=== PATIENT | male | born 1940 | race Caucasian/White ===

== ENCOUNTER 2019-01-07 21:37 | Inpatient (IN) | payer MEDICARE ==
[~2019-01-07] VITALS: Ht 182.9 cm; Wt 120.8 kg
[~2019-01-07 21:37] MED LIST: ACET500 PO; ALBU3IS INH; ALBU90OI6 INH; AMLO10 PO; AMLO5 PO; AMOCLA500 PO; ASCORBIC ACID PO; ASPI325 PO; ASPI81CH PO; ATORVASTATIN CA10 MG PO; BUDE6HFA; BUPRENORPHIN-N1 EACH SL; CARV3.125 PO; CHOL10002; CLOBET30L TOP; DIGO.25 PO; DIGOX125 MCG PO; DOCU100 PO; DOXY100 PO; ELIQUIS5 MG PO; FURO20 PO; GABA300 PO; HYDCHL12.5 PO; HYDR1TAB94 PO; INSULANPEN SC; LIDO5TO; LIDO700A20 TOP; LISI5 PO; MELO7.5 PO; METF500 PO; METO25ER PO; METO50 PO; MIRALAX17 GM PO; MULVITMINF PO; Metoprolol Tar100 MG PO; Milk Of Ma400 MG/5 M PO; NARCAN4 MG; NORT25 PO; POTCHL10ER PO; Prinivil10 MG PO; SANTYL30 GM TOP; SENN187 PO; SIMV10 PO; STIOLTO RESPIMAT4 GM INH; Senna Plus Tab1 EACH PO; TIOT18 INH; VITAMIN D250000 UNIT PO; Vitamin A10000 UNIT PO; ZINC220 PO; [UNRECOGNIZED DRUG - OTHER] TOP
[2019-01-07 22:22] LABS: Source, Urine Clean Catch
[2019-01-07 22:24] LABS: Appearance, Urine Clear (Clear); Bilirubin, Urine Neg (Neg); Blood, Urine 1+ (Neg); Color, Urine Yellow (P-Yellow); Glucose Qualitative, Urine Neg (Neg); Ketones, Urine Neg (Neg); Leukocyte Esterase, Urine Neg (Neg); Nitrite, Urine Neg (Neg); Protein, Urine Neg (Neg); Specific Gravity, Urine 1.005 (1.003-1.022); Urobilinogen, Urine NORM (Normal)
[2019-01-07 22:26] LABS: BASOPHILS ABSOLUTE AUTO 0.02 K/mm3 (0.00-0.23); BASOPHILS PERCENT AUTO 0 % (0-2); EOSINOPHILS ABSOLUTE AUTO 0.14 K/mm3 (0.00-0.68); EOSINOPHILS PERCENT AUTO 2 % (0-6); Hematocrit 39.3 % (37.0-53.0); Hemoglobin 11.5 g/dL (13.5-17.5); IMMATURE GRAN ABSOLUTE AUTO 0.02 K/mm3 (0.00-0.10); IMMATURE GRAN PERCENT AUTO 0 % (0-1); LYMPHOCYTES ABSOLUTE AUTO 0.43 K/mm3 (0.84-5.20); LYMPHOCYTES PERCENT AUTO 7 % (21-46); MONOCYTES ABSOLUTE AUTO 0.46 K/mm3 (0.16-1.47); MONOCYTES PERCENT AUTO 7 % (4-13); Mean Corpuscular HGB 27.2 pg (26.0-34.0); Mean Corpuscular HGB Conc 29.3 g/dL (31.5-36.5); Mean Corpuscular Volume 93 fL (80-100); Mean Platelet Volume 9.6 fL (9.1-12.4); NEUTROPHILS PERCENT AUTO 83 % (41-73); Platelet Count 165 K/mm3 (150-400); RDW Coefficient Variation 16.1 % (11.7-14.2); RDW Standard Deviation 54.8 fL (35.1-46.3); Red Blood Cell Count 4.23 M/mm3 (4.30-5.90); White Blood Cell Count 6.27 K/mm3 (4.00-11.30)
[2019-01-07 22:41] LABS: Bacteria Few /hpf; Squamous Epithelial Cells Not Seen /hpf (Few); White Blood Cells, Urine 0-2 /hpf (0-5)
[2019-01-07 22:42] LABS: PCO2 Arterial 69.4 mmHg (35-45); PO2 Arterial 59.5 mmHg (80-100); pH Blood Arterial 7.33 (7.35-7.45)
[2019-01-07 22:42] LABS: Alanine Aminotransfer (ALT/SGP 22 U/L (12-78); Albumin/Globulin Ratio 1.1 (0.8-1.8); Alk Phos 88 U/L (50-136); Anion Gap 3 mmol/L (6-16); Aspartate Aminotrans (AST/SGOT 19 U/L (12-37); Bilirubin, Total 0.7 mg/dL (0.1-1.0); Blood Urea Nitrogen 24 mg/dL (8-24); Bun/Creatinine Ratio 16.8 (12.0-20.0); CO2, Blood 36 mmol/L (21-32); Chloride, Blood 98 mmol/L (98-108); Creatinine, Blood 1.43 mg/dL (0.60-1.20); Globulin, Blood 3.8 g/dL (2.2-4.0); Glomerular Filtration Rate 51 (60-); Glucose, Blood 111 mg/dL (70-99); Potassium, Blood 4.6 mmol/L (3.5-5.5); Sodium, Blood 137 mmol/L (136-145); Total Protein, Blood 7.8 g/dL (6.4-8.2); Troponin I <0.015 ng/mL (0.000-0.040)
--- NOTE | 2019-01-08 01:00 | NUR ---
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 MENTATION WNL. SAFETY MEASURES REVIEWED. NO WEEPING OF LEGS NOTED . POOR HISTORIAN AND SEEMS UNSURE ABOUT SOME MEDS ON [facility] AND [facility] AGREES HE HAS RUN OUT OF MEDS OR [facility] MAY HAVE DCD. LIST SEEMS UPDATED AND AGREED UPON. AWARE NO MED FOR PAIN BUT TYLENOL.,. AF W/ AVERAGE 116 NOT SUSTAINING IN 120'S. FEW TIMES SEVERE LEG CRAMPS AND REQUIRES JUMPING OUT OF BED TO RELIEVE. NO BLE DSG COVERS DRY WOUNDS . 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
[2019-01-08 03:19] LABS: Adenovirus Not Detected (NOT DETECT); Bordetella pertussis Not Detected (NOT DETECT); Chlamydophila pneumoniae Not Detected (NOT DETECT); Coronavirus 229E Not Detected (NOT DETECT); Coronavirus HKU1 Not Detected (NOT DETECT); Coronavirus NL63 Not Detected (NOT DETECT); Coronavirus OC43 Not Detected (NOT DETECT); Human Metapneumovirus Detected (NOT DETECT); Human Rhinovirus/Enterovirus Detected (NOT DETECT); Influenza A Not Detected (NOT DETECT); Influenza A/2009-H1 Not Detected (NOT DETECT); Influenza A/H1 Not Detected (NOT DETECT); Influenza A/H3 Not Detected (NOT DETECT); Influenza B Not Detected (NOT DETECT); Mycoplasma pneumoniae Not Detected (NOT DETECT); Parainfluenza Virus 1 Not Detected (NOT DETECT); Parainfluenza Virus 2 Not Detected (NOT DETECT); Parainfluenza Virus 3 Not Detected (NOT DETECT); Parainfluenza Virus 4 Not Detected (NOT DETECT); Respiratory Syncytial Virus Not Detected (NOT DETECT)
[2019-01-08] MEDS ORDERED: AMLO5 PO (03:23)
[2019-01-08] MEDS ORDERED: MIRALAX17 GM PO (03:26)
[2019-01-08] MEDS ORDERED: ALBU90OI6 INH (03:28)
[2019-01-08] MEDS ORDERED: ELIQUIS5 MG PO (03:29)
[2019-01-08] MEDS ORDERED: Aspirin EC81 MG PO (03:30)
[2019-01-08] MEDS ORDERED: CARV25 PO (03:31)
[2019-01-08] MEDS ORDERED: FURO20 PO (03:32)
[2019-01-08] MEDS ORDERED: MAGOXI400 PO (03:33)
[2019-01-08] MEDS ORDERED: MELA3 PO (03:39)
[2019-01-08] MEDS ORDERED: OMEPRAZOLE20 MG PO (03:42)
[2019-01-08] MEDS ORDERED: POTCHL20ER PO (03:43)
[2019-01-08 04:08] LABS: Hematocrit 39.2 % (37.0-53.0); Hemoglobin 11.8 g/dL (13.5-17.5); Mean Corpuscular HGB Conc 30.1 g/dL (31.5-36.5); Mean Corpuscular Volume 90 fL (80-100); Mean Platelet Volume 9.9 fL (9.1-12.4); Platelet Count 137 K/mm3 (150-400); RDW Coefficient Variation 15.8 % (11.7-14.2); RDW Standard Deviation 51.7 fL (35.1-46.3); Red Blood Cell Count 4.37 M/mm3 (4.30-5.90); White Blood Cell Count 6.26 K/mm3 (4.00-11.30)
[2019-01-08 04:29] LABS: Albumin, Blood 3.9 g/dL (3.4-5.0); Bilirubin, Total 0.8 mg/dL (0.1-1.0); Bun/Creatinine Ratio 20.3 (12.0-20.0); Calcium, Blood 9.1 mg/dL (8.5-10.1); Creatinine, Blood 1.33 mg/dL (0.60-1.20); Globulin, Blood 3.9 g/dL (2.2-4.0); Total Protein, Blood 7.8 g/dL (6.4-8.2)
--- NOTE | 2019-01-08 06:00 | NUR ---
DOZING ON AND OFF AF HR AT SLEEP 100. REFUSED CPAP AND SIGNED WAVER. O2 AT 3 L WNL SAT
[2019-01-08 06:11] LABS: Digoxin (Lanoxin) 0.93 ug/mL (0.80-2.00)
--- NOTE | 2019-01-08 12:00 | NUR ---
PERMISSION FOR PATIENT CARE PATIENT GAVE STUDENT PERMISSION TO PROVIDE CARE ON 01/08/19.
--- NOTE | 2019-01-08 18:53 | NUR ---
PT HAD A GOOD DAY TODAY, HE HAS SLEPT OFF AND ON THROUGHOUT, HE STATES, "I AM SO TIRED, I HAVEN'T SLEPT WELL IN A COUPLE OF DAYS." ADDITIONALLY PATIENT HAS COMPLAINT OF TROUBLE WITH BM FOR SEVERAL DAYS, GAVE MED PER EMAR. PT O2 HOME DOSE IS 3.5 LPM VIA NC, HE HAS BEEN REQUIRING 3.5-4 LPM THROUGHOUT THE SHIFT, WHEN HE IS SLEEPING HE DOES DESATURATE. WILL CONTINUE TO MONITOR AND GIVE REPORT TO EDNA BENDER.
--- NOTE | 2019-01-08 21:50 | NUR ---
2150: REPORT GIVEN TO NURSE FOR ROOM 359 AND PT TRANSFERRED VIA WC. PM MEDS GIVEN, IV LEVAQUIN INFUSING, SPUTUM SAMPLE COLLECTED AND SENT TO LAB. PT GIVEN DULCOLAX SUPPOSITORY AND DENIES URGE TO HAVE BM AT TIME OF TRANSFER.
--- NOTE | 2019-01-08 22:08 | NUR ---
PT ARRIVES TO MEDICAL FLOOR FROM PCU VIA W/C. AMBULATES SBA TO BED. FRANKS CATH IS PATENT AND DRAINING CLEAR YELLOW URINE. ON 3L VIA NC. PT DENIES ANY PAIN OR DISCOMFORT. ORIENTED TO RM AND UNIT, CALL LIGHT IN REACH. ASSUMING CARE OF PT, WILL CONT TO MONITOR AND PROVIDE CARE.
--- NOTE | 2019-01-09 00:09 | NUR ---
ASSESSMENTS I AGREE WITH ALL PRIOR ASSESSMENTS BY YULIA MARINO.
[2019-01-09 05:49] LABS: Bun/Creatinine Ratio 26.9 (12.0-20.0); Calcium, Blood 8.8 mg/dL (8.5-10.1); Creatinine, Blood 1.34 mg/dL (0.60-1.20)
--- NOTE | 2019-01-09 05:53 | NUR ---
SHIFT SUMMARY: PT PCU TRANSFER TO MEDICAL FLOOR TONIGHT. PT IS A&O, WITH BASELINE LETHARGY. IS CALL LT APPROPRIATE AND AWARE OF PERSONAL LIMITATIONS. FRANKS IN PLACE FOR I/O, PATENT AND DRAINING. PT C/O CONSTIPATION AND RECIEVES SUPPOSITORY IN PCU. PT THIS AM HAS SMALL BM. CELLULITIS NOTED TO BLE, PT REPORTS PAIN WITH TOUCH. RED AND SCALEY. SPOKE WITH TIANA THIS AM TO UPDATE ON MIGUELITO'S CONDITION AND NEW ROOM ASSIGNMENT. WILL CONT TO MONITOR AND PROVIDE CARE UNTIL PRESUMED BY ONCOMING RN.
--- NOTE | 2019-01-09 10:25 | NUR ---
PT HAS A ADVANCED DIRECTIVE WITH DNR CODE STATUS, VERIFIED WITH PT. DR GARIBAY CHANGED TO DNR. VERIFIED WITH YULIA CASH AND DNR WRISTBAND PLACED TO LEFT WRIST.
--- NOTE | 2019-01-09 17:34 | NUR ---
SHIFT SUMMARY- PT A/OX2, PERSON AND PLACE, PT HAS BEEN SLEEPING ON AND OFF T/O MOST OF THE DAY. PT REFUSED TO GET OUT OF BED TO WALK OR UP TO THE CHAIR. PT MEDICATED X1 WITH TYLENOL. LS DIMINISHED WITH SLIGHT COARSENESS TO UPPER LOBES, ON 3L N/C WHICH PT IS HOME 02 DEPENDANT. 1+ BLE EDEMA. TINY PRICE'D, PT USING URINAL AT BEDSIDE. PT STARTED BACK ON IV LASIX BID. NO OTHER ACUTE CHANGES THIS SHIFT.
[2019-01-10 04:56] LABS: Bun/Creatinine Ratio 29.9 (12.0-20.0); Calcium, Blood 8.6 mg/dL (8.5-10.1); Creatinine, Blood 1.44 mg/dL (0.60-1.20); Potassium, Blood 4.3 mmol/L (3.5-5.5)
--- NOTE | 2019-01-10 06:05 | NUR ---
SHIFT SUMMARY ASSUMED CARE FROM TICO BENDER. PATIENT SLEEPING ON LEFT SIDE. GETS UP TO BSC WITH SBA. TICO ADMINISTERED A ENEMA AND REPORTED THAT PATIENT HAD A LARGE BM AFTER. PT USES CALL LIGHT APPROPRIATELY. VITAL SIGNS STABLE. NO NEW CHANGES.
--- NOTE | 2019-01-10 10:10 | NUR ---
PT REFUSING SHOWER PT CONTINUES TO REFUSE SHOWER. PT ENCOURAGED TO TAKE A SHOWER BY THIS RN. PT STATES HE DOESN'T UNDERSTAND WHY "EVERYONE" IS ASKING HIM TO TAKE A SHOWER. THIS RN EXPLAINED TO THE PT THAT HE IS BECOMING R[place] & THAT A SHOWER THIS SHIFT IS A VERY GOOD IDEA. PT AGREED TO TAKE ONE AROUND LUNCH TIME.
--- NOTE | 2019-01-10 15:49 | NUR ---
SHIFT SUMMARY PT USING O2 ONLY NEEDED. PT SHOWERED THIS SHIFT & AGREED TO BE UP IN CHAIR FOR MEALS. NO OTHER CHANGES IN ASSESSMENT AT THIS TIME. PT STATES HE FEELS "VERY TIRED." PT HAS SLEPT MOST THE SHIFT EXCEPT WHEN AWAKENED BY STAFF. VSS. WILL CONTINUE TO MONITOR UNTIL TURNOVER IS COMPLETE.
--- NOTE | 2019-01-11 02:04 | NUR ---
AMBULATION IN HALLS PT AMBULATING IN HALLS WITH RN AND IMMUNOPATHOLOGIST. AMBULATES FROM HIS RM (RM 359) TO ROOM 334 AND BACK. BECOMES SOB BUT OVERALL TOLERATES WELL. RETURNED TO BED, CALL LT IN PLACE. WILL CONT TO MONITOR.
[2019-01-11 05:35] LABS: Bun/Creatinine Ratio 33.8 (12.0-20.0); Calcium, Blood 8.8 mg/dL (8.5-10.1); Creatinine, Blood 1.3 mg/dL (0.60-1.20)
--- NOTE | 2019-01-11 05:37 | NUR ---
SHIFT SUMMARY - PT C/O PAIN TO BILATERAL FEET. PT ASKS THIS RN ABOUT GABAPENTIN HE TAKES AT HOME. [facility], PT TAKES 300MG PO GABAPENTIN DAILY, PT HAS NOT BEEN RECIEVING THIS HERE. WILL PASS OFF IN DAYSHIFT REPORT. TREATED c TYLENOL FOR PAIN TO FEET, WHICH PROVIDES LITTLE RELIEF. PT AMBULATES AROUND UNIT TONIGHT, MAKES IT TO RM 334 AND BACK. TOLERATES WELL ON 2-3L VIA NC. LS COARSE WHEEZE T/O. NO OTHER CHANGES TO REPORT. WILL CONT TO MONITOR AND PROVIDE CARE UNTIL PRESUMED BY ONCOMING RN.
[2019-01-11] MEDS ORDERED: ATOR10 PO (11:26)
[2019-01-11] MEDS ORDERED: Prinivil10 MG PO (11:27)
[2019-01-11] MEDS ORDERED: LEVO750 PO (11:31)
[2019-01-11] MEDS ORDERED: Nicoderm Cq1 EAC1 TOP (11:31)
[2019-01-11] MEDS ORDERED: PRED10 PO (11:33)
[2019-01-11] MEDS ORDERED: ALBU3IS INH (11:34)
[2019-01-11] MEDS ORDERED: DULERA 100 MCG/13 GM INH (11:35)
[2019-01-11] MEDS ORDERED: TORSE20 PO (11:36)
--- NOTE | 2019-01-11 12:10 | NUR ---
1130 ASSUMED CARE OF PATIENT, PATIENT DENIES PAIN OR SOB AT THIS TIME. PT SAYS STOMACH "FEELS FUNNY" PATIENT BELCHING AND EATING LUNCH AND STATES RELIEF
--- NOTE | 2019-01-11 12:16 | NUR ---
LATE ENTRY-TURNOVER REPORT GIVEN TO YULIA BURRELL AT 1100, WHO DENIES ANY FURTHER QUESTIONS. PT IN STABLE CONDITION & TO DC TODAY. NO CHANGES IN PT CONDITION.
--- NOTE | 2019-01-11 17:21 | NUR ---
discharge discharge instructions reviewed with patient and patients questions answered. patient aware that prescriptions have been faxed to [facility]. rim fire charger operator Neena Kelly and Hayden Posada RN nursing mails supervisor have phoned patients niece, with whom he lives, and left message that patient has been discharged and needs transportation home. no return call from patients niece and per patient he has no house cronin. will await return call from nialex
--- NOTE | 2019-01-11 17:49 | NUR ---
PT UNABLE TO DISCHARGE HOME UNABLE TO GET AHOLD OF TIANA MEDEIROS, MULTIPLE ATTEMPTS BY THIS RN AND NURSING SUP EDILMA. PT HAS NO KEYS TO GET INTO HOUSE. PT REQUESTED TO HAVE POLICE GO TO HOUSE AND CHECK- NO ONE HOME. SPOKE WITH DR LUNA- PT OK TO STAY UNTIL ABLE TO ACCESS HOUSE.
--- NOTE | 2019-01-11 17:57 | NUR ---
SUMMARY SPOKE WITH SHAILESH ARGUETA RN CHARGE NURSE REGARDING PATIENTS DISCHARGE PLAN. PER SHAILESH POLICE WENT TO PATIENTS HOUSE TO LOCATE FAMILY AND NO ONE WAS HOME. SHAILESH NOTIFIED DR GARIBAY AND WILL AWAIT FAMILY ARRIVAL TO DISCHARGE PATIENT. PATIENT HAS SLEPT THROUGHOUT THE AFTERNOON, DENIES PAIN OR DISCOMFORT. JIM ROGERS RN
--- NOTE | 2019-01-12 03:18 | NUR ---
SPOKE TO DR NESBITT REGARDING PATIENT HAVING NEAROPATHIC PAIN B/L LEs. RECVD DR MOREL TO GIVE HIS AM DOSE OF GABAPENTIN 300 MG PO AND PASS REQUEST FOR BETTER COVERAGE TO DAYTIME
--- NOTE | 2019-01-12 12:37 | NUR ---
DISCONTINUED UNCHARTED IV IV DISCONTINUED WNL. CATHETER INTACT. NO INFILTRATION. DISCONTINUED IV DUE TO PT'S DISCHARGE HOME.
--- NOTE | 2019-01-12 12:43 | NUR ---
DISCHARGE NOTE IV REMOVED PREVIOUS SHIFT. PT PROVIDED HARDCOPY AND VERBAL INSTRUCTIONS FOR DISCHARGE INCLUDING: DIAGNOSES, FOLLOW UP APPOINTMENTS, PRESCRIPTIONS. PERSONAL BELONGINGS GATHERED AND BAGGED. PT DRESSED IN PERSONAL CLOTHING. FAMILY CONTACTED TO RESERVOIR ENGINEERING CONSULTANT PT. AWAITING FAMILY ARRIVAL TO TRANSPORT PT HOME.
== END 2019-01-12 13:00 | disposition home or self-care (01) | DRG 291 ==
LOC: ER 21:37 → PCU 01-08 00:50 → MEDS 01-08 00:52 → PCU 01-08 00:52 → MEDS 01-08 21:54 → ENPENDDIS 01-11 09:52 → MEDS 01-12 13:00
PROVIDERS: Emergency Medicine; Internal Medicine; ADMIT Internal Medicine
PROC: 5A09457 Assistance with Respiratory Ventilation, 24-96 Consecutive Hours, Continuous Positive Airway Pressure (ICD-10-PCS; principal; 2019-01-08)
DX: I13.0 Hypertensive heart and chronic kidney disease with heart failure and stage 1 through stage 4 chronic kidney disease, or unspecified chronic kidney disease (principal); I50.33 Acute on chronic diastolic (congestive) heart failure; J12.3 Human metapneumovirus pneumonia; J44.1 Chronic obstructive pulmonary disease with (acute) exacerbation; J44.0 Chronic obstructive pulmonary disease with (acute) lower respiratory infection; N17.9 Acute kidney failure, unspecified; E87.2 Acidosis; J96.11 Chronic respiratory failure with hypoxia; N18.3 Chronic kidney disease, stage 3 (moderate); E11.22 Type 2 diabetes mellitus with diabetic chronic kidney disease; I48.91 Unspecified atrial fibrillation; F17.210 Nicotine dependence, cigarettes, uncomplicated; B97.89 Other viral agents as the cause of diseases classified elsewhere; Z66 Do not resuscitate; Z99.81 Dependence on supplemental oxygen; I73.9 Peripheral vascular disease, unspecified; E66.9 Obesity, unspecified; E11.621 Type 2 diabetes mellitus with foot ulcer; E11.42 Type 2 diabetes mellitus with diabetic polyneuropathy; J20.9 Acute bronchitis, unspecified
CPT/HCPCS: 36415; 36600; 51702; 71046; 80048; 80053; 80162; 81001; 82803; 82947; 83880; 84145; 84484; 85025; 85027; 87070; 87205; 87486; 87581; 87633; 87798; 93005; 93010; 93306; 94640; 94762; 96374-59; 97116; 97162; 99285-25; J1940; J1956; J2405; J2920; J2930; J7512

== ENCOUNTER 2019-03-12 08:01 | Inpatient (IN) | payer MEDICARE ==
[~2019-03-12] VITALS: Ht 185.4 cm; Wt 117.3 kg
[~2019-03-12 08:01] MED LIST changes: +ATOR10 PO; +Aspirin EC81 MG PO; +CARV25 PO; +DULERA 100 MCG/13 GM INH; +LEVO750 PO; +MAGNESIUM400 M1 PO; +MAGOXI400 PO; +MELA3 PO; +Nicoderm Cq1 EAC1 TOP; +OMEPRAZOLE20 MG PO; +POTCHL20ER PO; +PRED10 PO; +TORSE20 PO
[2019-03-12 08:33] LABS: BASOPHILS ABSOLUTE AUTO 0.02 K/mm3 (0.00-0.23); BASOPHILS PERCENT AUTO 0 % (0-2); EOSINOPHILS ABSOLUTE AUTO 0.12 K/mm3 (0.00-0.68); EOSINOPHILS PERCENT AUTO 2 % (0-6); Hematocrit 35.7 % (37.0-53.0); IMMATURE GRAN ABSOLUTE AUTO 0.04 K/mm3 (0.00-0.10); IMMATURE GRAN PERCENT AUTO 1 % (0-1); LYMPHOCYTES PERCENT AUTO 5 % (21-46); MONOCYTES ABSOLUTE AUTO 0.54 K/mm3 (0.16-1.47); MONOCYTES PERCENT AUTO 7 % (4-13); Mean Corpuscular HGB 29.1 pg (26.0-34.0); Mean Corpuscular HGB Conc 30.8 g/dL (31.5-36.5); Mean Corpuscular Volume 94 fL (80-100); Mean Platelet Volume 9.9 fL (9.1-12.4); NEUTROPHILS ABSOLUTE AUTO 6.35 K/mm3 (1.96-9.15); NEUTROPHILS PERCENT AUTO 85 % (41-73); Platelet Count 186 K/mm3 (150-400); RDW Coefficient Variation 17.2 % (11.7-14.2); RDW Standard Deviation 59.1 fL (35.1-46.3); Red Blood Cell Count 3.78 M/mm3 (4.30-5.90); White Blood Cell Count 7.47 K/mm3 (4.00-11.30)
[2019-03-12 08:52] LABS: Alanine Aminotransfer (ALT/SGP 11 U/L (12-78); Albumin, Blood 3.4 g/dL (3.4-5.0); Alk Phos 63 U/L (50-136); Anion Gap 3 mmol/L (6-16); Aspartate Aminotrans (AST/SGOT 6 U/L (12-37); Bilirubin, Total 0.6 mg/dL (0.1-1.0); Blood Urea Nitrogen 19 mg/dL (8-24); Bun/Creatinine Ratio 16.5 (12.0-20.0); CO2, Blood 32 mmol/L (21-32); Calcium, Blood 8.5 mg/dL (8.5-10.1); Chloride, Blood 107 mmol/L (98-108); Creatinine, Blood 1.15 mg/dL (0.60-1.20); Globulin, Blood 3.5 g/dL (2.2-4.0); Glomerular Filtration Rate >60 (60-); Glucose, Blood 138 mg/dL (70-99); Potassium, Blood 4.4 mmol/L (3.5-5.5); Sodium, Blood 142 mmol/L (136-145); Total Protein, Blood 6.9 g/dL (6.4-8.2); Troponin I 0.027 ng/mL (0.000-0.040)
[2019-03-12] MEDS ORDERED: ATOR40TA PO (15:11)
[2019-03-12] MEDS ORDERED: VITAMIN D50000 UNIT PO (15:46)
[2019-03-12] MEDS ORDERED: THERA1 EACH PO (15:53)
[2019-03-12] MEDS ORDERED: MELA3 PO (15:53)
--- NOTE | 2019-03-12 16:34 | NUR ---
RECEIVED REPORT AND ASSUMED CARE OF PATIENT UPON TRANSFER. PT IS ON 2 LPM VIA NC, O2 SAT >92%. PT STATES HE USES 2-3.5 LPM AT HOME NEEDED. LUNG SOUNDS ARE VERY WET AND COARSE WELL WHEEZY. WILL CONTINUE TO MONITOR AND FOLLOW ORDERS FOR THIS PATIENT. SET UP SUCTION FOR SAFETY.
--- NOTE | 2019-03-12 19:16 | NUR ---
PT HAS RESTED FOR AFTERNOON, ATE AND HAS BEEN ABLE TO EXPRESS NEEDS APPROPRIATELY. PT CONTINUES ON 2 LPM O2, HE HAS A BAD COUGH AND IS PRODUCING A LOT OF SPUTUM WHEN HE COUGHS, INSTRUCTED PATIENT ON USE OF SUCTION TO CLEAR SECRETIONS AND MUCUS. WILL CONTINUE MONITORING AND GIVE REPORT TO NOC RN.
--- NOTE | 2019-03-12 22:18 | NUR ---
PT'S VSS, SLIGHLY HTN, MEDS GIVEN ORDERED. PT ALERT AND TALKING WITH THIS NURSE. CALL LIGHT WITHIN REACH. REPORT GIVEN TO ONCOMING NURSE KATERINE ALFARO @[id number]
--- NOTE | 2019-03-13 06:20 | NUR ---
SHIFT SUMMARY PT SLEEPING IN ROOM COMFORTABLY AT THIS TIME. PT HAD NO ACUTE CHANGES IN STATUS T/O SHIFT. PT SLEPT WELL T/O NIGHT. DEVELOPED CONGESTED COUGH TOWARDS MORNING AND C/O THROAT PAIN. CEPACOL LOZENGES ORDERED AND GIVEN TO PT FOR PAIN. RESP EVEN UNLABORED ON 2L NS, W/ SATS >92%. DENIES PAIN. DENIES OTHER NEEDS. CALL LIGHT IN REACH.
[2019-03-13 08:21] LABS: BASOPHILS ABSOLUTE AUTO 0.01 K/mm3 (0.00-0.23); BASOPHILS PERCENT AUTO 0 % (0-2); EOSINOPHILS PERCENT AUTO 0 % (0-6); Hemoglobin 10.9 g/dL (13.5-17.5); IMMATURE GRAN ABSOLUTE AUTO 0.03 K/mm3 (0.00-0.10); IMMATURE GRAN PERCENT AUTO 0 % (0-1); LYMPHOCYTES ABSOLUTE AUTO 0.46 K/mm3 (0.84-5.20); LYMPHOCYTES PERCENT AUTO 6 % (21-46); MONOCYTES ABSOLUTE AUTO 0.46 K/mm3 (0.16-1.47); MONOCYTES PERCENT AUTO 6 % (4-13); Mean Corpuscular HGB 28.8 pg (26.0-34.0); Mean Corpuscular HGB Conc 31.1 g/dL (31.5-36.5); Mean Corpuscular Volume 92 fL (80-100); Mean Platelet Volume 10.2 fL (9.1-12.4); NEUTROPHILS ABSOLUTE AUTO 7.31 K/mm3 (1.96-9.15); NEUTROPHILS PERCENT AUTO 88 % (41-73); Platelet Count 186 K/mm3 (150-400); RDW Coefficient Variation 16.6 % (11.7-14.2); RDW Standard Deviation 56.3 fL (35.1-46.3); Red Blood Cell Count 3.79 M/mm3 (4.30-5.90); White Blood Cell Count 8.27 K/mm3 (4.00-11.30)
[2019-03-13 08:30] LABS: Anion Gap 4 mmol/L (6-16); Blood Urea Nitrogen 26 mg/dL (8-24); Bun/Creatinine Ratio 22.2 (12.0-20.0); CO2, Blood 35 mmol/L (21-32); Calcium, Blood 8.8 mg/dL (8.5-10.1); Chloride, Blood 103 mmol/L (98-108); Creatinine, Blood 1.17 mg/dL (0.60-1.20); Glomerular Filtration Rate >60 (60-); Glucose, Blood 150 mg/dL (70-99); Potassium, Blood 4.3 mmol/L (3.5-5.5); Sodium, Blood 142 mmol/L (136-145)
--- NOTE | 2019-03-13 08:57 | NUR ---
AM NOTE. ASSUMED CARE OF PT APROX 0700, PT IS A&Ox4 AND SBA IN THE ROOM, PT IS IND TO THE SIDE OF THE BED TO USE THE URINAL. PT WAS ADMITTED FOR CHF. PT IS CURRENTLY IN AFIB IN THE 100'S PER TYPESETTER PERFORATOR OPERATOR. PT'S L/S COARSE WITH EXP WHEEZES T/O, PT IS ON 2 L NC WITH O2 SATS >90%, THIS IS THE PT'S HOME DOSE. PT HAS 2+ PITTING EDEMA TO HIS BLE AND GENERALIZED EDEMA. BT PRESENT AND NORMOACTIVE, ABD IS SOFT AND NONTENDER TO PALP. PT HAS STATED WEAKNESS AND HAS SAID HE IS UNABLE TO TAKE CARE OF HIMSELF AT HOME ANY MORE, THIS STATEMENT MADE THE PT VISABLY UPSET. CALL LIGHT IN REACH, BED IS LOCKED AND LOW WILL CONTINUE TO MONITOR.
--- NOTE | 2019-03-13 16:01 | NUR ---
Initial Visit: Palliative Care Consult for Cardiac, Symptom Management, AD/POLST. Pt is A&O and denies pain at this time. Pt reports moderate dyspnea and mild anxiety. Engaged in therapeutic discussion regarding goals of care. Pt reports living with his niece and niece's and does not practice any latter day. Pt reports using kitchen and furniture to help stabalize as he ambulates. He reports needing assistance with ambulating, bathing, and at times with dressing. Pt also reports being forgetful of taking his medications. Educated Pt on disease process including trajectory. Educated on the importance of compliying with MD recommendations and the importance of routine conversations with PCP in order to plan accordingly. Pt expresses his primary goal at this point is receiving in home caregivers and can not affort to hire them. Instructed Pt this RN will place social service referral. At this time of visit Pt is being transfered to medical floor. Plan: Placed social service referral and palliative care will F/U for therapeutic visits and discuss AD/POLST.
--- NOTE | 2019-03-13 16:05 | NUR ---
PT. ARRIVED TO FLOOR FROM PCU-02 VIA . PT A&O BUT APPEARS DEPRESSED WITH A FLAT AFFECT. STEADY ON FEET, ABD OBESES, BLE ENDEMATOUS. DENIES PAIN OR NAUSEA . FACE RED AND PUFFY. LS COARSE T/O
--- NOTE | 2019-03-13 19:15 | NUR ---
PT. LAYING IN BED AFTER EATING DINNER, OXYGEN AT 2L/NC. PT. DENIES PAIN OR NAUSEA JUST WANTS TO BE ABLE TO BREATHE BETTER. NO NOTEABLE CHANGES.
--- NOTE | 2019-03-14 04:00 | NUR ---
SHIFT SUMMARY- PT. RESTED ON/OFF T/O THE NIGHT, NO APPARENT DISTRESS NOTED. ON . SCHEDULED MEDS GIVEN PER EMAR. PT. C/O TROUBLE SLEEPING AND COUGHING. ADMINISTERED MELATONIN AND LOZANGES PER ORDER, TOLERATED WELL. PT. USING SUCTION PRN FOR MILD SECRETIONS. CALL LIGHT WITHIN REACH AND SIDE RAILS UP X2. WILL CONT TO MONITOR.
[2019-03-14 05:06] LABS: BASOPHILS ABSOLUTE AUTO 0.02 K/mm3 (0.00-0.23); BASOPHILS PERCENT AUTO 0 % (0-2); EOSINOPHILS ABSOLUTE AUTO 0.07 K/mm3 (0.00-0.68); EOSINOPHILS PERCENT AUTO 1 % (0-6); Hematocrit 36.4 % (37.0-53.0); Hemoglobin 11.2 g/dL (13.5-17.5); IMMATURE GRAN ABSOLUTE AUTO 0.03 K/mm3 (0.00-0.10); IMMATURE GRAN PERCENT AUTO 0 % (0-1); LYMPHOCYTES ABSOLUTE AUTO 0.86 K/mm3 (0.84-5.20); LYMPHOCYTES PERCENT AUTO 8 % (21-46); MONOCYTES ABSOLUTE AUTO 0.74 K/mm3 (0.16-1.47); MONOCYTES PERCENT AUTO 7 % (4-13); Mean Corpuscular HGB Conc 30.8 g/dL (31.5-36.5); Mean Corpuscular Volume 91 fL (80-100); Mean Platelet Volume 10.1 fL (9.1-12.4); NEUTROPHILS ABSOLUTE AUTO 8.76 K/mm3 (1.96-9.15); NEUTROPHILS PERCENT AUTO 84 % (41-73); Platelet Count 215 K/mm3 (150-400); RDW Coefficient Variation 16.9 % (11.7-14.2); RDW Standard Deviation 56.6 fL (35.1-46.3); White Blood Cell Count 10.48 K/mm3 (4.00-11.30)
[2019-03-14 06:03] LABS: Alanine Aminotransfer (ALT/SGP 16 U/L (12-78); Albumin, Blood 3.2 g/dL (3.4-5.0); Albumin/Globulin Ratio 0.9 (0.8-1.8); Alk Phos 61 U/L (50-136); Anion Gap 6 mmol/L (6-16); Aspartate Aminotrans (AST/SGOT 6 U/L (12-37); Bilirubin, Total 0.4 mg/dL (0.1-1.0); Blood Urea Nitrogen 29 mg/dL (8-24); Bun/Creatinine Ratio 23.8 (12.0-20.0); CO2, Blood 36 mmol/L (21-32); Calcium, Blood 8.8 mg/dL (8.5-10.1); Chloride, Blood 100 mmol/L (98-108); Creatinine, Blood 1.22 mg/dL (0.60-1.20); Globulin, Blood 3.5 g/dL (2.2-4.0); Glomerular Filtration Rate >60 (60-); Glucose, Blood 137 mg/dL (70-99); Potassium, Blood 3.7 mmol/L (3.5-5.5); Sodium, Blood 142 mmol/L (136-145); Total Protein, Blood 6.7 g/dL (6.4-8.2)
--- NOTE | 2019-03-14 19:15 | NUR ---
PT, HAS SLEPT MOST OF THE DAY. HAS DENIED PAIN OR NAUSEA. PT. USING YANKER TO SUCTION SPUTUM WHEN COUGHING IT UP. BLOOD SUGARS HAVE BEEN LESS THAN 200 AND HAVE NOT NEEDED COVERED. NO OTHER CHANGES THIS SHIFT.
[2019-03-15 04:47] LABS: BASOPHILS ABSOLUTE AUTO 0.02 K/mm3 (0.00-0.23); BASOPHILS PERCENT AUTO 0 % (0-2); EOSINOPHILS ABSOLUTE AUTO 0.11 K/mm3 (0.00-0.68); EOSINOPHILS PERCENT AUTO 2 % (0-6); Hematocrit 38.9 % (37.0-53.0); Hemoglobin 11.7 g/dL (13.5-17.5); IMMATURE GRAN ABSOLUTE AUTO 0.02 K/mm3 (0.00-0.10); IMMATURE GRAN PERCENT AUTO 0 % (0-1); LYMPHOCYTES ABSOLUTE AUTO 0.83 K/mm3 (0.84-5.20); LYMPHOCYTES PERCENT AUTO 12 % (21-46); MONOCYTES ABSOLUTE AUTO 0.59 K/mm3 (0.16-1.47); MONOCYTES PERCENT AUTO 8 % (4-13); Mean Corpuscular HGB 27.9 pg (26.0-34.0); Mean Corpuscular HGB Conc 30.1 g/dL (31.5-36.5); Mean Corpuscular Volume 93 fL (80-100); Mean Platelet Volume 9.8 fL (9.1-12.4); NEUTROPHILS ABSOLUTE AUTO 5.63 K/mm3 (1.96-9.15); NEUTROPHILS PERCENT AUTO 78 % (41-73); Platelet Count 208 K/mm3 (150-400); RDW Coefficient Variation 16.6 % (11.7-14.2); RDW Standard Deviation 56.5 fL (35.1-46.3); Red Blood Cell Count 4.19 M/mm3 (4.30-5.90)
[2019-03-15 05:11] LABS: Bun/Creatinine Ratio 23.8 (12.0-20.0); Calcium, Blood 8.9 mg/dL (8.5-10.1); Creatinine, Blood 1.3 mg/dL (0.60-1.20); Magnesium, Blood 2.1 mg/dL (1.6-2.4); Potassium, Blood 3.6 mmol/L (3.5-5.5)
--- NOTE | 2019-03-15 07:50 | NUR ---
NOC SHIFT SUMMARY PT PLEASANT AND COOPERATIVE WITH CARE. HAS SLEPT MOST OF NIGHT. VSS. NO COUGHING OR SPUTUM PRODUCTION NOTED. APPEARED TO SLEEP WELL. NO ACUTE CHANGES NOTED THIS SHIFT. REPORT TO ONCOMING RN.
--- NOTE | 2019-03-15 17:23 | NUR ---
SHIFT SUMMARY PATIENT IS VERY PLEASANT. NO ACUTE CONCERNS AT THIS TIME. TAKES ALL HIS MEDICATIONS WHOLE WITH WATER. HE CALLS APPROPRIATELY. HE IS ALERT AND ORIENTED X 4, MOVES WITH STANDBY ASSIST. HE DID A LOT OF RELAXING AND RESTING TODAY. NO COMPLAINTS OF PAIN OR NUMBNESS AT THIS TIME.
--- NOTE | 2019-03-16 06:33 | NUR ---
SHIFT SUMMARY PT CONTINUES TO FEEL ILL. PT FEELS IF BREATHING HAS IMPROVED BUT IMPROVEMENT IS SLOW. PT SOB W/ EXERTION. FREQUENT NON PRODUCTIVE COUGH. LUNG SOUNDS COARSE. PT USING FLUTTER VALVE THROUGHOUT THE NIGHT. SLEPT OFF AN ON WHEN NOT WAKING UP TO COUGH. CEPACOL DROP GIVEN X 1. PT REMAINS ON 2 L O2 NC. O2 SATS IN THE LOW 90'S. NO ACUTE CHANGES THIS SHIFT. VSS. WILL CONTINUE TO MONITOR.
--- NOTE | 2019-03-16 18:30 | NUR ---
SHIFT SUMMARY PATIENT HAS BEEN PLEASANT. STATES THAT HE IS BACK TO HIS BASELINE WITH MOVEMENT AT THIS ITME. HE FEELS THAT HE IS ALMOST READY TO GO BACK. ALTHOUGH HE HAS A NONPRODUCTIVE COUGH. NO ACUTE CONCERNS FROM THE PATIENT TODAY.
[2019-03-17 05:01] LABS: Anion Gap 2 mmol/L (6-16); Blood Urea Nitrogen 36 mg/dL (8-24); Bun/Creatinine Ratio 30.3 (12.0-20.0); CO2, Blood 40 mmol/L (21-32); Calcium, Blood 9.1 mg/dL (8.5-10.1); Chloride, Blood 99 mmol/L (98-108); Creatinine, Blood 1.19 mg/dL (0.60-1.20); Glomerular Filtration Rate >60 (60-); Glucose, Blood 138 mg/dL (70-99); Magnesium, Blood 2.8 mg/dL (1.6-2.4); Potassium, Blood 4.2 mmol/L (3.5-5.5); Sodium, Blood 141 mmol/L (136-145)
--- NOTE | 2019-03-17 05:25 | NUR ---
SHIFT SUMMARY PT APPEARS TO BE BREATHING BETTER THIS EVENING AND PT REPORTS THAT OVERALL HE FEELS MUCH BETTER AND FEELS LIKE HE IS BREATHING BETTER. CONTINUES TO HAVE A NONPRODUCTIVE COUGH. LUNG SOUNDS CONTINUE TO BE TIGHT AND WHEEZY BUT LESS SO THAN PREVIOUS SHIFT. PT REPORTS THAT HE HAS NOT HAD A BM SINCE 03/11/19. SCHEDULED COLACE GIVEN AND PRN MILK OF MAG GIVEN WITH NO RESULTS. PT DENIES ANY ABD DISCOMFORT JUST REPORTS THAT HE "HASN'T HAD THE URGE". PT HAD A DIFFICULT TIME SLEEPING, MEDICATED W/ MELATONIN AT APPROX 0200. PT RESTING WELL AT THIS TIME. VSS. NO ACUTE CHANGES. WILL CONTINUE TO MONITOR.
--- NOTE | 2019-03-17 17:04 | NUR ---
SHIFT SUMMARY PATIENT IS DOING WELL TODAY. POTENTIAL FOR DISCHARGE TOMORROW. HE NOTED THAT HIS NECK AND BACK HURT TODAY MORE SO THAN THEY HAVE BEEN. HE STATES HE NORMALLY TAKES IBUPROFEN AT HOME. HE WAS GIVEN ONE DOSE THAT EFFECTIVELY RELIEVED THE PAIN. JUST AWAITING PATIENT'S BNP AND BREATHING TO IMPROVE MORE.
[2019-03-18 05:02] LABS: Anion Gap 3 mmol/L (6-16); Blood Urea Nitrogen 35 mg/dL (8-24); Bun/Creatinine Ratio 28.9 (12.0-20.0); CO2, Blood 40 mmol/L (21-32); Calcium, Blood 8.7 mg/dL (8.5-10.1); Chloride, Blood 99 mmol/L (98-108); Creatinine, Blood 1.21 mg/dL (0.60-1.20); Glomerular Filtration Rate >60 (60-); Glucose, Blood 134 mg/dL (70-99); Potassium, Blood 4.2 mmol/L (3.5-5.5); Sodium, Blood 142 mmol/L (136-145)
--- NOTE | 2019-03-18 05:35 | NUR ---
SHIFT SUMMARY MELATONIN GIVEN WITH NIGHT TIME MEDICATIONS AND PT SLEPT WELL THROUGHOUT THE NIGHT. NO COMPLAINTS OF PAIN OR SOB. LUNG SOUNDS CONTINUE TO BE COARSE AND WHEEZY WITH SLOW IMPROVEMENT. PT OVERALL FEELING MUCH BETTER. AMBULATING INDEPENDENTLY. CONTINUES ON 2 L O2 NC. PT USES O2 AT HOME PRN. VSS. NO ACUTE CHANGES THIS SHIFT.
--- NOTE | 2019-03-18 18:06 | NUR ---
DISCHARGE NOTE IV DC'D WNL. DISCHARGE MEDICATIONS FAXED TO PREFERED PHARMACY. PERSONAL POSSESSIONS GATHERED. FAMILY NOTIFIED PT IS DISCHARGING. PT PROVIDED WITH HARDCOPY AND VERBAL INSTRUCTIONS FOR DC RE: DIAGNOSES, DISCHARGE MEDICATIONS, FOLLOW UP APPOINTMENTS. PT HAD NO FURTHER QUESTIONS. AWAITING FAMILY MEMBER TO ARRIVE TO TRANSPORT PT HOME. PT STATES FAMILY MEMBER HAD TO UNEXPECTEDLY WORK LATE.
--- NOTE | 2019-03-18 18:14 | NUR ---
FAMILY ARRIVED FAMILY ARRIVED AT 1814 HRS TO TRANSPORT PT HOME FOR DISCHARGE.
== END 2019-03-18 18:16 | disposition home or self-care (01) | DRG 291 ==
LOC: ER 08:01 → PCU 10:11 → MEDS 03-13 15:49 → ENPENDDIS 03-18 12:45 → MEDS 03-18 18:16
PROVIDERS: Internal Medicine; Physician Assistant; ADMIT Internal Medicine
DX: I13.0 Hypertensive heart and chronic kidney disease with heart failure and stage 1 through stage 4 chronic kidney disease, or unspecified chronic kidney disease (principal); I50.33 Acute on chronic diastolic (congestive) heart failure; J18.9 Pneumonia, unspecified organism; J96.21 Acute and chronic respiratory failure with hypoxia; Z68.41 Body mass index [BMI] 40.0-44.9, adult; Z99.81 Dependence on supplemental oxygen; G47.30 Sleep apnea, unspecified; E66.01 Morbid (severe) obesity due to excess calories; I71.6 Thoracoabdominal aortic aneurysm, without rupture; E11.40 Type 2 diabetes mellitus with diabetic neuropathy, unspecified; F17.210 Nicotine dependence, cigarettes, uncomplicated; I48.91 Unspecified atrial fibrillation; N18.3 Chronic kidney disease, stage 3 (moderate); E11.22 Type 2 diabetes mellitus with diabetic chronic kidney disease
CPT/HCPCS: 36415; 71046; 80048; 80053; 82947; 83605; 83735; 83880; 84145; 84443; 84484; 85025; 87040; 93005; 93010; 94640; 94667; 94760; 96365; 96366; 96368; 96375; 97161; 99285-25; J0456; J0696; J1940; J2930; J7050

== ENCOUNTER 2019-06-01 06:44 | Inpatient (IN) | payer OTHER, MEDICARE ==
[~2019-06-01] VITALS: Ht 175.3 cm; Wt 122.1 kg
[~2019-06-01 06:44] MED LIST changes: +ATOR40TA PO; +THERA1 EACH PO; +VITAMIN D50000 UNIT PO
[2019-06-01 07:13] LABS: BASOPHILS ABSOLUTE AUTO 0.04 K/mm3 (0.00-0.23); BASOPHILS PERCENT AUTO 0 % (0-2); EOSINOPHILS ABSOLUTE AUTO 0.12 K/mm3 (0.00-0.68); EOSINOPHILS PERCENT AUTO 1 % (0-6); Hematocrit 40.8 % (37.0-53.0); Hemoglobin 12.7 g/dL (13.5-17.5); IMMATURE GRAN ABSOLUTE AUTO 0.08 K/mm3 (0.00-0.10); IMMATURE GRAN PERCENT AUTO 1 % (0-1); LYMPHOCYTES ABSOLUTE AUTO 0.19 K/mm3 (0.84-5.20); LYMPHOCYTES PERCENT AUTO 1 % (21-46); MONOCYTES ABSOLUTE AUTO 0.48 K/mm3 (0.16-1.47); MONOCYTES PERCENT AUTO 3 % (4-13); Mean Corpuscular HGB 28.4 pg (26.0-34.0); Mean Corpuscular HGB Conc 31.1 g/dL (31.5-36.5); Mean Corpuscular Volume 91 fL (80-100); Mean Platelet Volume 9.8 fL (9.1-12.4); NEUTROPHILS ABSOLUTE AUTO 13.81 K/mm3 (1.96-9.15); NEUTROPHILS PERCENT AUTO 94 % (41-73); Platelet Count 151 K/mm3 (150-400); RDW Coefficient Variation 15.1 % (11.7-14.2); RDW Standard Deviation 49.9 fL (35.1-46.3); Red Blood Cell Count 4.47 M/mm3 (4.30-5.90); White Blood Cell Count 14.72 K/mm3 (4.00-11.30)
[2019-06-01 07:34] LABS: Albumin, Blood 3.8 g/dL (3.4-5.0); Albumin/Globulin Ratio 1.1 (0.8-1.8); Bilirubin, Total 0.7 mg/dL (0.1-1.0); Bun/Creatinine Ratio 15.6 (12.0-20.0); Calcium, Blood 9.3 mg/dL (8.5-10.1); Creatinine, Blood 1.28 mg/dL (0.60-1.20); Globulin, Blood 3.6 g/dL (2.2-4.0); Potassium, Blood 4.4 mmol/L (3.5-5.5); Total Protein, Blood 7.4 g/dL (6.4-8.2); Troponin I 0.054 ng/mL (0.000-0.040)
[2019-06-01] MEDS ORDERED: GABA300 PO (08:24)
[2019-06-01 10:06] LABS: Digoxin (Lanoxin) 0.55 ug/mL (0.80-2.00)
[2019-06-01 14:41] LABS: PCO2 Arterial 39.3 mmHg (35-45); PO2 Arterial 77.1 mmHg (80-100); pH Blood Arterial 7.49 (7.35-7.45)
[2019-06-01 16:13] LABS: Adenovirus Not Detected (NOT DETECT); Bordetella pertussis Not Detected (NOT DETECT); Chlamydophila pneumoniae Not Detected (NOT DETECT); Coronavirus 229E Not Detected (NOT DETECT); Coronavirus HKU1 Not Detected (NOT DETECT); Coronavirus NL63 Not Detected (NOT DETECT); Coronavirus OC43 Not Detected (NOT DETECT); Human Metapneumovirus Not Detected (NOT DETECT); Human Rhinovirus/Enterovirus Not Detected (NOT DETECT); Influenza A Not Detected (NOT DETECT); Influenza A/2009-H1 Not Detected (NOT DETECT); Influenza A/H1 Not Detected (NOT DETECT); Influenza A/H3 Not Detected (NOT DETECT); Influenza B Not Detected (NOT DETECT); Mycoplasma pneumoniae Not Detected (NOT DETECT); Parainfluenza Virus 1 Not Detected (NOT DETECT); Parainfluenza Virus 2 Not Detected (NOT DETECT); Parainfluenza Virus 3 Not Detected (NOT DETECT); Parainfluenza Virus 4 Not Detected (NOT DETECT); Respiratory Syncytial Virus Not Detected (NOT DETECT)
[2019-06-01 16:54] LABS: Source, Urine Clean Catch
[2019-06-01 17:07] LABS: Appearance, Urine Clear (Clear); Bilirubin, Urine Neg (Neg); Blood, Urine Neg (Neg); Color, Urine Yellow (P-Yellow); Glucose Qualitative, Urine Neg (Neg); Ketones, Urine Neg (Neg); Leukocyte Esterase, Urine Neg (Neg); Nitrite, Urine Neg (Neg); Protein, Urine Neg (Neg); Urobilinogen, Urine NORM (Normal)
--- NOTE | 2019-06-01 19:41 | NUR ---
alert at baseline, knew the date and president but was unsure of where or why he was, callight in reach, alarm on bed for safety, call light in reach, frequent pt checks
--- NOTE | 2019-06-02 00:39 | NUR ---
REPORTED TO CHELY BENDER. PATIENT SLEEING. CALL LIGHT W/I REACH AND BED ALARM ON.
[2019-06-02 04:13] LABS: BASOPHILS ABSOLUTE AUTO 0.04 K/mm3 (0.00-0.23); BASOPHILS PERCENT AUTO 0 % (0-2); EOSINOPHILS PERCENT AUTO 0 % (0-6); Hematocrit 35.8 % (37.0-53.0); IMMATURE GRAN ABSOLUTE AUTO 0.12 K/mm3 (0.00-0.10); IMMATURE GRAN PERCENT AUTO 1 % (0-1); LYMPHOCYTES ABSOLUTE AUTO 0.31 K/mm3 (0.84-5.20); LYMPHOCYTES PERCENT AUTO 2 % (21-46); MONOCYTES ABSOLUTE AUTO 0.31 K/mm3 (0.16-1.47); MONOCYTES PERCENT AUTO 2 % (4-13); Mean Corpuscular HGB 28.7 pg (26.0-34.0); Mean Corpuscular HGB Conc 30.7 g/dL (31.5-36.5); Mean Corpuscular Volume 94 fL (80-100); NEUTROPHILS ABSOLUTE AUTO 12.17 K/mm3 (1.96-9.15); NEUTROPHILS PERCENT AUTO 94 % (41-73); Platelet Count 131 K/mm3 (150-400); RDW Coefficient Variation 15.5 % (11.7-14.2); RDW Standard Deviation 52.9 fL (35.1-46.3); Red Blood Cell Count 3.83 M/mm3 (4.30-5.90); White Blood Cell Count 12.95 K/mm3 (4.00-11.30)
--- NOTE | 2019-06-02 04:27 | NUR ---
ASSUMED PT CARE FROM YULIA MO AT 0300 PT LYING IN BED. ALERT AND ORIENTED X4; ABLE TO MAKE NEEDS KNOWN. TEMPORAL TEMPERATURE TAKEN WITH RESULTS OF 100.9; PT FELT VERY WARM TO THE TOUCH. TOOK ORAL TEMP WITH READING OF 98.8. PT HAS A CONGESTED COUGH, BUT UNABLE TO COUGH ANYTHING UP. LUNG SOUNDS ARE CLEAR TO BILATERAL UPPER LOBES AND RLL; HOWEVER, DIMINISHED TO LLL. PT IS ON 4L VIA NC WITH OXYGEN SATURATIONS 91%. PT IS AFIB WITH BBB; HR 94. ABDOMEN IS ROUND, SOFT TO PALPATION WITH ACTIVE BTX4. SKIN IS WARM TO THE TOUCH; NON-PITTING EDEMA TO BILATERAL ANKLES. BILATERAL LOWER EXTREMITIES ARE RED, WARM, AND TENDER TO THE TOUCH; PT STATES HE HAD CELLULITIS TO BLE'S. PT HAS WHAT APPEARS TO BE INTACT BLOOD BLISTER TO LEFT GREAT TOE. 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 BILATERAL HEELS ARE NOTED TO HAVE BLANCHABLE REDNESS, BUT NO OPEN AREAS. 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 C/O NECK PAIN; REPOSITIONED FOR COMFORT. DENIES NUMBNESS/TINGLING TO HANDS/FEET. PT NOTED TO BE SOAKED IN URINE. WHEN ASKED IF HE IS INCONTINENT HE STATED, "NO", BUT MUST OF SPILLED THE URINAL. ENCOURAGED PT TO CALL FOR ASSISTANCE WHEN USING URINAL; PT VERBALIZED UNDERSTANDING. CALL LIGHT LEFT WITHIN REACH; ICE WATER REFILLED. WILL CONTINUE TO MONITOR FOR CHANGES UNTIL REPORT IS HANDED OFF TO ONCOMING RN.
[2019-06-02 04:30] LABS: Bun/Creatinine Ratio 20.6 (12.0-20.0); Calcium, Blood 8.5 mg/dL (8.5-10.1); Creatinine, Blood 1.41 mg/dL (0.60-1.20); Potassium, Blood 3.6 mmol/L (3.5-5.5)
--- NOTE | 2019-06-02 11:33 | NUR ---
called esperanza r/consult, cell phone stated he was out for week, will seek other source of info
--- NOTE | 2019-06-02 13:24 | NUR ---
REMOVED POWERGLIDE AND TELE, TOLERATED WELL, TIP WHOLE, DISCUSSED MEDICATION, DISCHARGE INSTRRUCTIONS, APPOINTMENTS AND EXPECTATIONS, EXPERSSED/DEMONSTRATED KNOWLEGE AND AGREEMENT, SIGNED DISCHARGE PAPERWORK, PLACED IN CHART, PT PLANS TO LEAVE WITH
--- NOTE | 2019-06-02 14:05 | NUR ---
Echocardiogram completed.
--- NOTE | 2019-06-02 17:05 | NUR ---
placed on cpap, appears to be resting well, o2 rate staying steady, will continue to monitor and treat
[2019-06-03 04:08] LABS: BASOPHILS ABSOLUTE AUTO 0.02 K/mm3 (0.00-0.23); BASOPHILS PERCENT AUTO 0 % (0-2); EOSINOPHILS PERCENT AUTO 1 % (0-6); Hematocrit 35.9 % (37.0-53.0); IMMATURE GRAN ABSOLUTE AUTO 0.07 K/mm3 (0.00-0.10); IMMATURE GRAN PERCENT AUTO 1 % (0-1); LYMPHOCYTES ABSOLUTE AUTO 0.55 K/mm3 (0.84-5.20); LYMPHOCYTES PERCENT AUTO 6 % (21-46); MONOCYTES ABSOLUTE AUTO 0.56 K/mm3 (0.16-1.47); MONOCYTES PERCENT AUTO 6 % (4-13); Mean Corpuscular HGB Conc 30.6 g/dL (31.5-36.5); Mean Corpuscular Volume 95 fL (80-100); Mean Platelet Volume 10.5 fL (9.1-12.4); NEUTROPHILS ABSOLUTE AUTO 8.79 K/mm3 (1.96-9.15); NEUTROPHILS PERCENT AUTO 87 % (41-73); Platelet Count 118 K/mm3 (150-400); RDW Coefficient Variation 15.4 % (11.7-14.2); RDW Standard Deviation 53.2 fL (35.1-46.3); Red Blood Cell Count 3.79 M/mm3 (4.30-5.90); White Blood Cell Count 10.09 K/mm3 (4.00-11.30)
[2019-06-03 04:31] LABS: Anion Gap 3 mmol/L (6-16); Blood Urea Nitrogen 32 mg/dL (8-24); CO2, Blood 34 mmol/L (21-32); Calcium, Blood 8.6 mg/dL (8.5-10.1); Chloride, Blood 103 mmol/L (98-108); Creatinine, Blood 1.39 mg/dL (0.60-1.20); Glomerular Filtration Rate 53 (60-); Glucose, Blood 99 mg/dL (70-99); Phosphorus, Blood 3.1 mg/dL (2.5-4.9); Potassium, Blood 3.7 mmol/L (3.5-5.5); Sodium, Blood 140 mmol/L (136-145)
--- NOTE | 2019-06-03 06:28 | NUR ---
SHIFT SUMMARY PT HAS REMAINED AOX4 THROUGHOUT SHIFT. VSS. PLEASANT AND COOPERATIVE WITH CARE. PT HAS RESTED WELL THROUGHOUT THE NIGHT, WAKING EASILY FOR CARE. O2 SATS HAVE REMAINED >90% ON 2L VIA NASAL CANNULA OR ON CPAP WITH 3-5L BLEED IN. O2 DESATURATES TO MID 80s OCCASIONALLY WHEN PERIODS OF APNEA NOTED, SATS INCREASE QUICKLY- WITHIN ONE MINUTE OF INITITALLY DESATURATION. DENIES DYSPNEA. PT CONTINUES TO USE URINAL AT BEDSIDE WITH STAFF ASSISTANCE. PT MEDICATED MULTIPLE TIMES FOR PAIN TO L LEG THROUGHOUT THE NIGHT WHERE CELLULITIS NOTED, PAIN DECREASED WITH ORDERED MEDICATIONS AND PT ABLE TO REST WELL. LEG IS RED, SWOLLEN AND TENDER TO THE TOUCH. BORDER DRAWN AROUND REDNESS ON LLE TO MONITOR SWELLING AND REDNESS. NO OTHER CHANGES NOTED FROM INITIAL ASSESSMENT. WILL CONTINUE TO MONITOR AND REPORT TO ONCOMING SHIFT RN. BED IN LOW POSITION, CALL LIGHT IN REACH.
--- NOTE | 2019-06-03 18:26 | NUR ---
SHIFT SUMMARY PT ALERT AND ORIENTED. VS STABLE. O2 SATS HAVE REMAIN ABOVE 90% ON 3L NC. BP STABLE. HR AFIB 80'S. PT COMPLAINS OF PAIN IN HIS LEFT LEG. REDNESS AND SWELLING UNCHANGED FROM INITIAL ASSESSMENT AND STILL WITHIN MARKED BORDERS. CARDIOLOGY CONSULT HAS BEEN CALLED TO OFFICE. PT ABLE [place] [facility] [place]. WILL CONTINUE TO MONITOR AND REPORT TO ONCOMING RN. CALL LIGHT IN REACH. PT CALLS APPROPRIATELY.
[2019-06-04 04:22] LABS: BASOPHILS ABSOLUTE AUTO 0.01 K/mm3 (0.00-0.23); BASOPHILS PERCENT AUTO 0 % (0-2); EOSINOPHILS ABSOLUTE AUTO 0.09 K/mm3 (0.00-0.68); EOSINOPHILS PERCENT AUTO 1 % (0-6); Hematocrit 35.4 % (37.0-53.0); Hemoglobin 10.6 g/dL (13.5-17.5); IMMATURE GRAN ABSOLUTE AUTO 0.03 K/mm3 (0.00-0.10); IMMATURE GRAN PERCENT AUTO 1 % (0-1); LYMPHOCYTES ABSOLUTE AUTO 0.63 K/mm3 (0.84-5.20); LYMPHOCYTES PERCENT AUTO 10 % (21-46); MONOCYTES ABSOLUTE AUTO 0.47 K/mm3 (0.16-1.47); MONOCYTES PERCENT AUTO 8 % (4-13); Mean Corpuscular HGB 28.3 pg (26.0-34.0); Mean Corpuscular HGB Conc 29.9 g/dL (31.5-36.5); Mean Corpuscular Volume 95 fL (80-100); Mean Platelet Volume 10.8 fL (9.1-12.4); NEUTROPHILS ABSOLUTE AUTO 5.02 K/mm3 (1.96-9.15); NEUTROPHILS PERCENT AUTO 80 % (41-73); Platelet Count 127 K/mm3 (150-400); RDW Coefficient Variation 15.3 % (11.7-14.2); Red Blood Cell Count 3.74 M/mm3 (4.30-5.90); White Blood Cell Count 6.25 K/mm3 (4.00-11.30)
[2019-06-04 04:46] LABS: Anion Gap 2 mmol/L (6-16); Blood Urea Nitrogen 32 mg/dL (8-24); Bun/Creatinine Ratio 24.1 (12.0-20.0); CO2, Blood 35 mmol/L (21-32); Calcium, Blood 8.5 mg/dL (8.5-10.1); Chloride, Blood 103 mmol/L (98-108); Creatinine, Blood 1.33 mg/dL (0.60-1.20); Glomerular Filtration Rate 55 (60-); Glucose, Blood 95 mg/dL (70-99); Phosphorus, Blood 3.5 mg/dL (2.5-4.9); Potassium, Blood 4.2 mmol/L (3.5-5.5); Sodium, Blood 140 mmol/L (136-145)
--- NOTE | 2019-06-04 05:29 | NUR ---
SHIFT SUMMARY PT HAS REMAINED AOX4 THROUGHOUT SHIFT. VSS. PLEASANT AND COOPERATIVE WITH CARE. PT HAS RESTED WELL THROUHGOUT THE NIGHT, WAKING EASILY FOR CARE. O2 SATS HAVE REMAINED >90% ON 3L VIA NASAL CANNULA OR ON BIPAP WITH 5L BLEED IN. PT TOLERATED BIPAP FOR APPROXIMATELY 4 HOURS LAST NIGHT, BUT REMOVED IT AFTER AND DID NOT WANT TO REPLACE IT WHILE SLEEPING. PT EDUCATED ON BIPAP IMPORTANCE AND USE- VERBALIZED UNDERSTANDING. PT WITH NOT O2 DESATURATIONS THROUGHOUT THE NIGHT AND HAS DENIED DYSPNEA. MEDICATED ONCE FOR PAIN THAT DECREASED WITH ORDERED MEDICATIONS. PT HAS BEEN NPO EXCEPT MEDS SINCE 399 FOR POSSIBLE PROCEDURE TODAY. NO OTHER CHANGES NOTED FROM INITIAL ASSESSMENT. WILL CONTINUE TO MONITOR AND REPORT TO ONCOMING SHIFT RN. BED IN LOW POSITION,CALL LIGHT IN REACH.
--- NOTE | 2019-06-04 18:06 | NUR ---
SHIFT SUMMARY PT ALERT AND ORIENTED. VS STABLE. O2 SATS REMAIN ABOVE 90% ON 3L NC. PT DENIED PAIN TODAY IN HIS LEFT LEG. PT REPOSITIONING HIMSELF IN BED. WILL CONTINUE TO MONITOR AND REPORT TO ONCOMING RN. CALL LIGHT IN REACH. PT SITTING UP EATING DINNER.
[2019-06-05 04:21] LABS: BASOPHILS ABSOLUTE AUTO 0.01 K/mm3 (0.00-0.23); BASOPHILS PERCENT AUTO 0 % (0-2); EOSINOPHILS ABSOLUTE AUTO 0.12 K/mm3 (0.00-0.68); EOSINOPHILS PERCENT AUTO 2 % (0-6); Hematocrit 36.6 % (37.0-53.0); Hemoglobin 11.1 g/dL (13.5-17.5); IMMATURE GRAN ABSOLUTE AUTO 0.02 K/mm3 (0.00-0.10); IMMATURE GRAN PERCENT AUTO 0 % (0-1); LYMPHOCYTES ABSOLUTE AUTO 0.73 K/mm3 (0.84-5.20); LYMPHOCYTES PERCENT AUTO 15 % (21-46); MONOCYTES ABSOLUTE AUTO 0.37 K/mm3 (0.16-1.47); MONOCYTES PERCENT AUTO 8 % (4-13); Mean Corpuscular HGB 28.1 pg (26.0-34.0); Mean Corpuscular HGB Conc 30.3 g/dL (31.5-36.5); Mean Corpuscular Volume 93 fL (80-100); Mean Platelet Volume 10.1 fL (9.1-12.4); NEUTROPHILS PERCENT AUTO 75 % (41-73); Platelet Count 118 K/mm3 (150-400); RDW Coefficient Variation 14.9 % (11.7-14.2); RDW Standard Deviation 50.5 fL (35.1-46.3); Red Blood Cell Count 3.95 M/mm3 (4.30-5.90); White Blood Cell Count 4.95 K/mm3 (4.00-11.30)
[2019-06-05 04:36] LABS: Anion Gap 3 mmol/L (6-16); Blood Urea Nitrogen 24 mg/dL (8-24); Bun/Creatinine Ratio 21.8 (12.0-20.0); CO2, Blood 35 mmol/L (21-32); Calcium, Blood 8.8 mg/dL (8.5-10.1); Chloride, Blood 103 mmol/L (98-108); Glomerular Filtration Rate >60 (60-); Glucose, Blood 99 mg/dL (70-99); Phosphorus, Blood 2.9 mg/dL (2.5-4.9); Potassium, Blood 4.3 mmol/L (3.5-5.5); Sodium, Blood 141 mmol/L (136-145)
--- NOTE | 2019-06-05 06:31 | NUR ---
SHIFT SUMMARY PT HAS REMAINED AOX4 THROUHGOUT SHIFT. VSS. PLEASANT AND COOPERATIVE WITH CARE. PT HAS RESTED WELL THROUGHOUT THE NIGHT, WAKING EASILY FOR CARE. O2 SATS HAVE REMAINED >90% ON 3L VIA NASAL CANNULA OR ON CPAP WITH 3L BLEED IN. MEDICATED MULTIPLE TIMES FOR PAIN TO L LEG THAT DECREASED WITH ORDERED MEDICATIONS. NO OTHER CHANGES NOTED FROM INITIAL ASSESSMENT. WILL CONTINUE TO MONITOR AND REPORT TO ONCOMING SHIFT RN. BED IN LOW POSITION, CALL LIGHT IN REACH.
--- NOTE | 2019-06-05 08:55 | NUR ---
AM NOTE. ASSUMED CARE OF PT APROX 0700, PT IS A&Ox4 AND SBA IN THE ROOM. PT WAS ADMITTED FOR CHF EXAC. PT IS NOT WANTING TO GET UP OUT OF BED THIS AM FOR BREAKFAST STATING HE WAS TOO COLD, WARM BLANKET WAS OFFERED AND TEMP IN ROOM INCREASED, HOWEVERE PT STILL REFUSING. L/S CLEAR IN THE UPPER COARSE IN THE MID AND LOWER LOBES, PT IS ON 2L NC WITH O2 SATS >95%. PT HAS 1+ EDEMA TO HIS BLE AND CELLULITIS TO THE RLE. PT DENIES PAIN AT THIS TIME. WILL CONTINUE TO MONITOR.
--- NOTE | 2019-06-05 16:58 | NUR ---
PT TRANSFER... PT WAS TRANSFERED TO MEDICAL FLOOR. ALL PT'S BELONGINGS WERE PACKED AND TAKEN WITH THE PT. REPORT WAS CALLED TO MED FLOOR RN. PT WAS ON RA WITH O2 SATS AT 94%, PT WAS ABLE TO SELF TRANSFER FROM THE BED TO W/C.
--- NOTE | 2019-06-05 18:21 | NUR ---
ARRIVES FROM PCU VIA W/C. ON R.A. SPEAKS IN COMPLETE SENTENCES. IV OUT. NO TELE. IRREGULAR HEART RATE. 3 TOES AMPUTATED RT FOOT. LEFT FOOT DRY, THICK SCALEY SKIN W/SCAB TO GREAT TOE. USES URINAL IN BED WITHOUT DIFFICULTY. REDNESS TO LLE APPEARS TO BE RECEDING. LUNGS CLEAR TO DIM T/O. COOPERATIVE. ABLE TO MAKE NEEDS KNOWN. WCTM.
--- NOTE | 2019-06-06 16:52 | NUR ---
SHIFT SUMMARY: PT IS A/O X 4 WITH C/O PAIN X 1 FOR WHICH HE REPORTS THE ORDERED PAIN MED WAS EFFECTIVE. PT WAS ASSISTED BY THERAPY TO GET UP TO THE CHAIR FOR HIS MEALS. IV ABO INFUSED WITH NO ISSUES. PT CONTINUES TO HAVE A WET PRODUCTIVE COUGH WITH NO S/S OF RESPIRATORY DISTRESS. PT USES URINAL TO VOID. HE CALLS FOR HELP WHEN NEEDED AND IS UP WATCHING TV.
--- NOTE | 2019-06-07 05:53 | NUR ---
SHIFT SUMMARY PT REFUSED TO WEAR CPAP TONIGHT. HAS BEEN ON 3L VIA NC T/O NIGHT, CONT PULSE OX IN PLACE. O2 SATS WNL, PT DENIES ANY SOB. PRODUCTIVE COUGH, HEALY SPUTUM. SLEPT THROUGH THE NIGHT, AROUSES TO STIMULI, A&OX4, CALL LT APPROP/ABLE TO MAKE NEEDS KNOWN. IV ABX ADMINISTERED PER EMAR. NO OTHER CHANGES TO REPORT. WILL CONT TO MONITOR AND PROVIDE CARE UNTIL PRESUMED BY ONCOMING RN.
--- NOTE | 2019-06-07 18:09 | NUR ---
NO ACUTE CHANGES NOTED. NO CURRENT COMPLAINTS OF PAIN OR DISCOMFORT NOTED. WILL CONTINUE TO MONITOR FOR CHANGES.
--- NOTE | 2019-06-08 05:29 | NUR ---
SHIFT SUMMARY NO ACUTE EVENTS TONIGHT. REFUSED TO WEAR CPAP. CONT PULSE OX IN PLACE. ON 3L VIA NC, BASELINE. HAD LARGE FORMED BM TONIGHT. INDEPENDENT IN RM FOR SHORT DISTANCES, OTHERWISE REQUIRES SBA. DYSPNEA UPON EXERTION, PT REPORTS HE IS AT HIS RESP BASELINE. DENIES PAIN, DISCOMFORT, N/V, ANXIETY. SLEPT WELL THROUGH THE NIGHT. WILL CONT TO MONITOR AND PROVIDE CARE UNTIL PRESUMED BY ONCOMING RN.
--- NOTE | 2019-06-08 18:09 | NUR ---
SHIFT SUMMARY NO ACUTE CHANGES. PATIENT MEDICATED X 1 FOR NECK PAIN, GIVEN KPAD FOR COMFORT. DENIES NAUSEA AND SHORTNESS OF BREATH. PATIENT UP IN CHAIR MOST OF DAY. PATIENT WORKED WITH PT, UP ONE ASSIST WITH FWW. CALL LIGHT IN REACH.
--- NOTE | 2019-06-09 05:17 | NUR ---
SHIFT SUMMARY NO ACUTE CHANGES OVERNIGHT. ON 2-3L VIA NC, CONT PULSE OX IN PLACE, REFUSES CPAP TONIGHT. MEDICATED ONCE FOR PAIN WITH PO TRAMADOL, PROVIDES RELIEF. CBG WNL, NO COV INDICATED. PT IS SBA/INDEPENDENT IN . WILL CONT TO MONITOR AND PROVIDE CARE UNTIL PRESUMED BY ONCOMING RN.
--- NOTE | 2019-06-09 16:19 | NUR ---
SHIFT SUMMARY NO ACUTE CHANGES. PATIENT MEDICATED X 1 FOR PAIN, KPAD FOR COMFORT. DENIES NAUSEA AND SHORTNESS OF BREATH. OXYGEN SATURATION MAINTAINING ABOVE 92% ON 2L NC. PATIENT UP 1 ASSIST W/ FWW IN ROOM. PATIENT UP IN CHAIR FOR MEALS. CALL LIGHT IN REACH.
--- NOTE | 2019-06-10 05:23 | NUR ---
SHIFT SUMMARY NO ACUTE EVENTS OVER NIGHT. PT ON 2 L VIA NC AT THIS TIME, CONT PULSE OX IN PLACE; O2 SATS REMAIN IN WNL. DENIES PAIN, NAUEA, VOMITING, ANXIETY, OR DIARRHEA. INDEPENDENT IN RM. IV ABX ADMINISTERED PER ORDERS. WILL CONT TO MONITOR AND PROVIDE CARE UNTIL PRESUMED BY ONCOMING RN.
[2019-06-10 05:49] LABS: BASOPHILS ABSOLUTE AUTO 0.03 K/mm3 (0.00-0.23); BASOPHILS PERCENT AUTO 0 % (0-2); EOSINOPHILS ABSOLUTE AUTO 0.16 K/mm3 (0.00-0.68); EOSINOPHILS PERCENT AUTO 2 % (0-6); Hematocrit 35.8 % (37.0-53.0); Hemoglobin 10.9 g/dL (13.5-17.5); IMMATURE GRAN ABSOLUTE AUTO 0.05 K/mm3 (0.00-0.10); IMMATURE GRAN PERCENT AUTO 1 % (0-1); LYMPHOCYTES ABSOLUTE AUTO 1.04 K/mm3 (0.84-5.20); LYMPHOCYTES PERCENT AUTO 15 % (21-46); MONOCYTES ABSOLUTE AUTO 0.47 K/mm3 (0.16-1.47); MONOCYTES PERCENT AUTO 7 % (4-13); Mean Corpuscular HGB 27.9 pg (26.0-34.0); Mean Corpuscular HGB Conc 30.4 g/dL (31.5-36.5); Mean Corpuscular Volume 92 fL (80-100); Mean Platelet Volume 10.6 fL (9.1-12.4); NEUTROPHILS ABSOLUTE AUTO 5.03 K/mm3 (1.96-9.15); NEUTROPHILS PERCENT AUTO 74 % (41-73); Platelet Count 172 K/mm3 (150-400); RDW Coefficient Variation 14.6 % (11.7-14.2); Red Blood Cell Count 3.91 M/mm3 (4.30-5.90); White Blood Cell Count 6.78 K/mm3 (4.00-11.30)
[2019-06-10 06:04] LABS: Alanine Aminotransfer (ALT/SGP 7 U/L (12-78); Albumin/Globulin Ratio 0.9 (0.8-1.8); Alk Phos 72 U/L (50-136); Anion Gap 1 mmol/L (6-16); Aspartate Aminotrans (AST/SGOT 14 U/L (12-37); Bilirubin, Total 0.4 mg/dL (0.1-1.0); Blood Urea Nitrogen 32 mg/dL (8-24); Bun/Creatinine Ratio 28.6 (12.0-20.0); CO2, Blood 41 mmol/L (21-32); Calcium, Blood 8.7 mg/dL (8.5-10.1); Chloride, Blood 96 mmol/L (98-108); Creatinine, Blood 1.12 mg/dL (0.60-1.20); Globulin, Blood 3.5 g/dL (2.2-4.0); Glomerular Filtration Rate >60 (60-); Glucose, Blood 96 mg/dL (70-99); Potassium, Blood 4.3 mmol/L (3.5-5.5); Sodium, Blood 138 mmol/L (136-145); Total Protein, Blood 6.5 g/dL (6.4-8.2)
--- NOTE | 2019-06-10 17:15 | NUR ---
SHIFT SUMMARY NO ACUTE CHANGES TO PRESENT THIS SHIFT. PT IS A&O, INDEPENDENT IN RM, GETTING UP TO CHAIR FOR MEALS AND BACK TO BED. USING URINAL AT BS. C/O NECK PAIN, REQUESTING PAIN MEDICATION. ULTRAM GIVEN PER EMAR. PT REPORTING IT EFFECTIVE. PT IS MORBIDLY OBESE. BLE'S VERY RED, DRY AND PEELING. DR SCHULER IN TO SEE PT AND ASSESS BLE'S. IV ABX CHANGED. LUNGS T/O COARSE THRU OUT. VERY PC WITH HEALY SPUTUM. ABLE TO MAKE NEEDS KNOWN. CALL LT IN REACH.
--- NOTE | 2019-06-11 06:34 | NUR ---
06/11/19 0630 AWAKE AND MEDICATED FOR PAIN. VITALS STABLE AND SLEPT ON AND OFF LAST NIGHT. VOIDING QS. MODERATE SOB WITH TALKING AND MOLD AT REST. O2 AT 2LPM VIA N/C.
--- NOTE | 2019-06-11 20:01 | NUR ---
SHIFT SUMMARY PT RESTING QUIETLY DURING SHIFT REPORT. WAKES EASILY FOR CARE. PT VERY DECONDITIONED AND DOES NOT WANT TO GET STRONGER. PT ENCOURAGED TO GET UP TO CHAIR FOR ALL MEALS, BUT THEN GOES BACK TO BED TO SLEEP. PT NEEDS TO BE UP MOVING AROUND. DR WHITTAKER IN TO SEE PT AGAIN THIS AM AND ATTEMPTED TO ENCOURAGE PT TO MOVE AROUND. PT IS MORBIDLY OBESE AND VERY UNMOTIVATED TO PARTICIPATE IN CARE NEEDED. PT STILL NEEDING A COUPLE MORE WEEKS OF IV ABX AND WAITING FOR D/C TO EITHER [facility], WHEN B[facility]AILABLE OR POSSIBLY HOME WITH H/H. D/C PLANNERS TO ASSIST. CALL LT IN REACH. ABLE TO MAKE NEEDS KNOWN.
--- NOTE | 2019-06-12 06:48 | NUR ---
06/12/19 0640 SLEPT BETTER TONIGHT. MEDICATED FOR CHRONIC NECK PAIN PER OCT. VITALS REMAIN STABLE. CONT. PULSE OXIMETER INPLACE AND O2 SATS > 93% THIS SHIFT ON 2 LPM VIA N/C. UNEVENTFUL NIGHT.
--- NOTE | 2019-06-12 17:21 | NUR ---
SHIFT SUMMARY OX3; UP TO CHAIR FOR MEALS SBA. EATING AND DRINKING WELL. MEDICATED FOR RIGHT SHOULDER AND NECK PAIN. COOPERATIVE AND PLEASANT. SOME PAIN WITH AMBULATION R/T CALLUS TO BOTTOM OF RIGHT FOOT AND AMBUTATION OF TOES. CONTINUOUS BIOX. AMBULATED TODAY WITH OT ON ROOM AIR AND TOLERATED WELL.
--- NOTE | 2019-06-13 05:53 | NUR ---
SHIFT SUMMARY NO ACUTE EVENTS OVERNIGHT. PT IS A&OX4, INDEPENDENT IN RM. PLEASANT AND COOPERATIVE WITH CARE. CONT PULSE OX IN PLACE, O2 SATS HAVE REMAINED WNL TONIGHT. ON 2L VIA NC, LS DIM. PLAN FOR EITHER [facility]H OR [facility] UPON D/C TO [place] OUT IV ABX COURSE. WILL CONT TO MONITOR AND PROVIDE CARE UNTIL PRESUMED BY ONCOMING RN.
--- NOTE | 2019-06-13 18:36 | NUR ---
SHIFT SUMMARY PATIENT ALERT AND ORIENTED X3, USES FWW TO AMBULATE A FEW STEPS WITH PT TODAY, SAT IN CHAIR FOR MEALS. CONT PULSE OX ON, 2L 02 NC ON. SP02 DROPPED WITH EXERTION OR GETTING INTO CHAIR BUT QUICKLY CAME BACK UP. PATIENT C/O PAIN IN NECK AND BOTTOM OF R FOOT, TRAMADOL GIVEN. PATIENT STATED HE DIDN'T SLEEP WELL IN NIGHT SO WANTED TO BE LEFT ALONE THIS AFTERNOON. PT WAS NOT DISTURBED FOR A COUPLE HOURS, DOOR SHUT, PT WAS ABLE TO SLEEP. GOWN AND HAQUE PAD CHANGED BY RN.
--- NOTE | 2019-06-14 05:11 | NUR ---
SHIFT SUMMARY NO ACUTE EVENTS TONIGHT. PT IS INDEPENDENT IN RM. ON 2L VIA NC, CONT PULSE OX IN PLACE. MEDICATED ONCE WITH PO TRAMADOL FOR C/O NECK PAIN. PT MOSTLY JUST LOUNGES IN ROOM, WATCHING TV. VERY LOW MOTIVATION. SLEPT WELL THROUGH THE NIGHT. AWAITING PLACEMENT FOR IV ABX COURSE TO BE COMPLETED ON JUN 30. WILL CONT TO MONITOR AND PROVIDE CARE UNTIL PRESUMED BY ONCOMING RN.
[2019-06-14] MEDS ORDERED: ACET325 PO (11:12)
[2019-06-14] MEDS ORDERED: AMLO10 PO (11:13)
[2019-06-14] MEDS ORDERED: Florastor250 MG PO (11:15)
[2019-06-14] MEDS ORDERED: Ceftriaxon2 GM/50 ML IV (11:15)
--- NOTE | 2019-06-14 13:00 | NUR ---
DISCHARGE PATIENT DISCHARGED AROUND 1230 TO THE [facility]. IV IN L FA REMAINED IN. REPORT CALLED TO A CONSTRUCTION AREA MANAGER THERE. PACKET MADE BY DC GRINDING WHEEL DRESSER GIVEN TO TRANSPORTER. ALL BELONGINGS SENT WITH PATIENT. PT'S SZYMANSKI SHAVED OFF TODAY.
== END 2019-06-14 12:20 | DRG 871 ==
LOC: ER 06:44 → PCU 09:23 → MEDS 09:23 → PCU 10:31 → MEDS 06-05 17:27 → ENPENDDIS 06-14 11:41 → MEDS 06-14 12:20
PROVIDERS: Emergency Medicine; Internal Medicine; ADMIT Family Medicine
DX: A40.0 Sepsis due to streptococcus, group A (principal); J96.21 Acute and chronic respiratory failure with hypoxia; I50.33 Acute on chronic diastolic (congestive) heart failure; I21.A1 Myocardial infarction type 2; I13.0 Hypertensive heart and chronic kidney disease with heart failure and stage 1 through stage 4 chronic kidney disease, or unspecified chronic kidney disease; J44.0 Chronic obstructive pulmonary disease with (acute) lower respiratory infection; I48.20 Chronic atrial fibrillation, unspecified; L03.116 Cellulitis of left lower limb; J44.1 Chronic obstructive pulmonary disease with (acute) exacerbation; N18.3 Chronic kidney disease, stage 3 (moderate); E11.22 Type 2 diabetes mellitus with diabetic chronic kidney disease; D63.1 Anemia in chronic kidney disease; J20.9 Acute bronchitis, unspecified; Z99.81 Dependence on supplemental oxygen; E11.42 Type 2 diabetes mellitus with diabetic polyneuropathy; G47.33 Obstructive sleep apnea (adult) (pediatric); I73.9 Peripheral vascular disease, unspecified; E55.9 Vitamin D deficiency, unspecified; F32.9 Major depressive disorder, single episode, unspecified; L89.890 Pressure ulcer of other site, unstageable; E66.01 Morbid (severe) obesity due to excess calories; F17.210 Nicotine dependence, cigarettes, uncomplicated; E78.5 Hyperlipidemia, unspecified; Z66 Do not resuscitate; I25.10 Atherosclerotic heart disease of native coronary artery without angina pectoris
CPT/HCPCS: 0099U; 36415; 36600; 71045; 73620; 80048; 80053; 80069; 80162; 81003; 82803; 82947; 83605; 83880; 84145; 84484; 85025; 85651; 87040; 87070; 87077; 87147; 87205; 93005; 93010; 93308; 93971; 94640; 94660; 94760; 94762; 96365; 96375; 97110; 97116; 97162; 97166; 97530; 97535; 99285-25; A9270; J0456; J0690; J0696; J1940; J1956; J3010; J7050

== ENCOUNTER 2019-10-18 16:34 | Emergency (ER) | payer OTHER, MEDICARE ==
[~2019-10-18] VITALS: Ht 185.4 cm; Wt 122.5 kg
[~2019-10-18 16:34] MED LIST changes: +ACET325 PO; +Ceftriaxon2 GM/50 ML IV; +Florastor250 MG PO
[2019-10-18 17:43] LABS: BASOPHILS ABSOLUTE AUTO 0.04 K/mm3 (0.00-0.23); BASOPHILS PERCENT AUTO 0 % (0-2); EOSINOPHILS ABSOLUTE AUTO 0.11 K/mm3 (0.00-0.68); EOSINOPHILS PERCENT AUTO 1 % (0-6); Hemoglobin 15.2 g/dL (13.5-17.5); IMMATURE GRAN ABSOLUTE AUTO 0.03 K/mm3 (0.00-0.10); IMMATURE GRAN PERCENT AUTO 0 % (0-1); LYMPHOCYTES ABSOLUTE AUTO 0.99 K/mm3 (0.84-5.20); LYMPHOCYTES PERCENT AUTO 10 % (21-46); MONOCYTES PERCENT AUTO 5 % (4-13); Mean Corpuscular HGB 27.9 pg (26.0-34.0); Mean Corpuscular Volume 90 fL (80-100); Mean Platelet Volume 10.4 fL (9.1-12.4); NEUTROPHILS PERCENT AUTO 83 % (41-73); Platelet Count 206 K/mm3 (150-400); RDW Coefficient Variation 14.9 % (11.7-14.2); RDW Standard Deviation 49.1 fL (35.1-46.3); Red Blood Cell Count 5.45 M/mm3 (4.30-5.90); White Blood Cell Count 9.97 K/mm3 (4.00-11.30)
[2019-10-18 17:57] LABS: Albumin, Blood 4.1 g/dL (3.4-5.0); Albumin/Globulin Ratio 1.1 (0.8-1.8); Bilirubin, Total 0.7 mg/dL (0.1-1.0); Bun/Creatinine Ratio 20.9 (12.0-20.0); Calcium, Blood 9.8 mg/dL (8.5-10.1); Creatinine, Blood 1.34 mg/dL (0.60-1.20); Globulin, Blood 3.8 g/dL (2.2-4.0); Potassium, Blood 4.5 mmol/L (3.5-5.5); Total Protein, Blood 7.9 g/dL (6.4-8.2); Troponin I 0.033 ng/mL (0.000-0.040)
[2019-10-18] MEDS ORDERED: ALBU2.5V5 INH (18:28)
== END 2019-10-18 19:06 | disposition home or self-care (01) ==
LOC: ER 16:34
PROVIDERS: Physician Assistant
DX: J44.9 Chronic obstructive pulmonary disease, unspecified (principal); I11.0 Hypertensive heart disease with heart failure; I50.9 Heart failure, unspecified; E11.40 Type 2 diabetes mellitus with diabetic neuropathy, unspecified; I48.91 Unspecified atrial fibrillation; F32.9 Major depressive disorder, single episode, unspecified; F17.210 Nicotine dependence, cigarettes, uncomplicated; Z88.8 Allergy status to other drugs, medicaments and biological substances; Z79.899 Other long term (current) drug therapy
CPT/HCPCS: 71046; 80053; 83880; 84484; 85025; 93005; 93010; 99284-25